=== PATIENT | female | born 1975 | race Caucasian/White ===

== ENCOUNTER 2021-12-05 16:44 | Emergency (ER) | payer OTHER ==
--- OUTSIDE RECORDS SUMMARY | 2021-12-05 16:48 | XMS REPORT | Continuity of Care Document ---
:1975 Author Organization [facility] t Address [address] [place] [address] Care Team Providers Name Role Phone Anurag Fuentes Attending Clinician Unavailable Problems This patient has no known problems. Allergies, Adverse Reactions, Alerts This patient has no known allergies or adverse reactions. Medications Ordered Filled Start Stop Current Ordering Indication Dosage Frequency Signature Comments Components Source Medication Medication Date Date Medication? Clinician (SIG) Name Name Symbicort Symbicort 2018-10 2020- No Na Fuentes [address] [facility] 12 [facility] Levothyroxi Levothyroxi 2018-10 Yes Na Fuentes [address] [facility] ne Sodium ne Sodium 0-23 in the [facility] - 00:00: morning on [facility] 00 an empty l [facility] Ambien Ambien Yes Na Fuentes [address] [facility] bedtime [facility] - as needed [facility] ProAir ProAir Yes Na Fuentes [address] [facility] RespiClick RespiClick needed [facility] - [facility] Singulair Singulair Yes Na Fuentes [address] [facility] - evening [facility] Levothyroxi Levothyroxi Yes Na Fuentes [address] [facility] ne Sodium ne Sodium on an [facility] s - empty [facility] stomach in [facility] Immunizations Ordered Filled Immunization Date Status Comments Sourc e Immunization Name Name Afluria single dose Afluria single dose 2019-08-[address] [facility] Procedures This patient has no known procedures. Encounters Start End Encounter Admission Attending Care Care Encounter Source Date/Time Date/Time Type Type Clinicians Facility Department ID 2021-11-16 Outpatient Alexus Fuentes [facility] [id number] [facility] 2021-11-16 Outpatient Alexus Fuentes [facility] [id number] [facility]39[facility]03 [facility] 2021-11-16 Outpatient Alexus Fuentes [facility] [id number] [facility] 13[facility]34[facility]21 [facility] 2021-11-16 Outpatient Alexus Fuentes [facility] [id number] [facility]33:37 [facility] 2021-11-16 Outpatient Alexus Fuentes [facility] [id number] [facility] 12:59:52 [id number] [facility] 2021-11-16 Outpatient Alexus Fuentes [facility] [id number] [facility] 12:28:11 [id number] [facility] 2021-11-16 Outpatient Gina, Alexus [facility] [id number] [facility] 12:21:43 [id number] [facility] 2021-11-16 Outpatient Alexus Fuentes [facility] [id number] [facility] 12:02:38 [id number] [facility] 2021-11-16 Outpatient Alexus Fuentes [facility] [id number] [facility] 12:02:09 [id number] [facility] 2021-11-16 Outpatient Alexus Fuentes [facility] [id number] [facility] 12:01:48 [id number] [facility] 2021-11-16 Outpatient Alexus Fuentes [facility] [id number] [facility] 11:34:58 [id number] [facility] 2021-11-16 Outpatient Gina, Alexus [facility] [id number] [facility] 11:20:32 [id number] [facility] 2021-11-16 Outpatient Alexus Fuentes [facility] [id number] [facility] 11:05:58 [id number] [facility] 2021-11-16 Outpatient Alexus Fuentes [facility] [id number] [facility] [address] 11:05:32 [id number] [facility] 2021-11-16 2021-11-16 ambulatory [facility] [id number] [facility] 2021-10-26 2021-10-26 ambulatory [facility] [id number] [facility] 2021-07-12 2021-07-12 Outpatient [facility] [id number] [facility] 2021-06-22 2021-06-22 Outpatient [facility] [id number] [facility] 2021-05-25 2021-05-25 Outpatient [facility] [id number] [facility] 2021-03-11 2021-03-11 Outpatient [facility] [id number] [facility] 2021-02-24 2021-02-24 Outpatient [facility] [id number] [facility] 2020-11-26 2020-11-26 Outpatient [facility] [id number] [facility] 2020-11-05 2020-11-05 Outpatient [facility] [id number] [facility] 2020-11-01 2020-11-01 Outpatient [facility] [id number] [facility] 2020-10-27 2020-10-27 Outpatient [facility] [id number] [facility] 2020-09-23 2020-09-23 Outpatient [facility] [id number] [facility] 2020-09-22 2020-09-22 Outpatient [facility] [id number] [facility] 2020-09-21 2020-09-21 Outpatient [facility] [id number] [facility] 2020-09-01 2020-09-01 Outpatient [facility] [id number] [facility] 2020-08-26 2020-08-26 Outpatient [facility] [id number] [facility] 2020-07-22 2020-07-22 Outpatient [facility] [id number] [facility] 2020-05-25 2020-05-25 [facility] [id number] [facility] 15:00:00 15:00:00 [place] [employer] s - Drive [facility] l Medicine Outpati ent Clinics 2020-02-26 2020-02-26 [facility] [id number] [facility] 15:43:00 15:43:00 t [place] [employer] - Drive [facility] Medicine Outpati ent Clinics 2020-02-26 2020-02-26 [facility] [id number] 15:00:00 15:00:[address] [facility] - [employer] [facility] Medicine l Medicine Outpati ent Clinics 2020-02-16 2020-02-16 [facility] [id number] 09:39:00 09:39:00 [facility] l Medicine Outpati ent Clinics 2020-02-11 2020-02-11 [facility] [id number] 14:50:00 14:50:00 [facility] l Medicine Outpati ent Clinics 2020-02-11 2020-02-11 [facility] [id number] [address] 14[facility]00:00 14:00:00 [facility] Medicine Outpati ent Clinics 2020-02-11 2020-02-11 [facility] [id number] 11:17:00 11:17:00 t Contentful s - [employer] [facility] Medicine Outpati ent Clinics 2019-12-01 2019-12-01 [facility] [id number] 08:22:00 08:22:00 t Content[place] s - [employer] [facility] Medicine l Medicine Outpati ent Clinics 2019-11-27 2019-11-27 [facility] [id number] 08:00:00 08:00:00 t [employer] s - [employer] [facility] Medicine l Medicine Outpati ent Clinics 2019-10-03 2019-10-03 [facility] [id number] 10:20:00 10:20:00 t [place] [employer] - [employer] [facility] Medicine l Medicine Outpati ent Clinics 2019-08-27 2019-08-27 [facility] [id number] 15:50:00 15:50:00 t [place] [employer] - [employer] [facility] Medicine l Medicine Outpati ent Clinics 2019-08-22 2019-08-22 [facility] [id number] 15:00:00 15:00:00 t [place] [employer] - [employer] [facility] Medicine l Medicine Outpati ent Clinics 2019-08-11 2019-08-11 [facility] [id number] [facility] 15:18:00 15:18:00 t [place] [employer] [facility] s - Drive [facility] Medicine Outpati ent Clinics 2019-08-04 2019-08-04 [facility] [id number] 16:31:00 16:31:00 t [place] [employer] [facility] s - Drive [facility] l Medicine Outpati ent Clinics 2019-07-28 2019-07-28 [facility] [id number] [address] 09:55:00 09:55:00 t [place] [employer] Luke s - Drive [facility] l Medicine Outpati ent Clinics 2019-05-01 2019-05-01 [facility] [id number] 15:20:00 15:20:00 t [place] [employer] - Drive [facility] Medicine Outpati ent Clinics 2018-10-29 2018-10-29 [facility] [id number] 13:56:00 13:56:00 t [place] [employer] - Drive [facility] Medicine Outpati ent Clinics 2018-09-26 2018-09-26 [facility] [id number] [facility] 14:45:00 14:45:00 t [place] [employer] - Drive [facility] Medicine Outpati ent Clinics 2018-07-03 2018-07-03 [facility] [id number] 15:15:00 15:15:00 t [place] [employer] - Drive [facility] Medicine Outpati ent Clinics 2018-02-21 2018-02-21 [facility] [id number] 14:37:00 14:37:00 t [place] [employer] - Drive [facility] Medicine Outpati ent Clinics 2018-02-01 2018-02-01 [facility] [id number] [facility] 08:30:00 08:30:00 t [place] [employer] - Drive [facility] Medicine Outpati ent Clinics Results This patient has no known results.
[2021-12-05 17:23] LABS: Urine Blood 1+ (Negative); Urine Glucose Negative (Negative); Urine Protein Negative (Negative); Urine Specific Gravity 1.025 (1.005-1.030)
[2021-12-05 17:31] LABS: Urine Specific Gravity/Preg 1.025 (1.005-1.030)
[2021-12-05 17:32] LABS: Hematocrit 36.8 % (36.0-45.0); Lymphocytes % 34.2 % (15.3-44.8); MPV 7.3 fL (7.6-11.3); RBC Red Blood Cell Count 4.46 M/uL (3.86-4.86)
[2021-12-05 17:43] LABS: Albumin 3.7 g/dL (3.4-5.0); BUN Blood Urea Nitrogen 17 mg/dL (7-18); Bicarbonate 25 mmol/L (21-32); Glucose Level 90 mg/dL (74-106); Lipase 213 U/L (73-393); Potassium 3.8 mmol/L (3.5-5.1); Sodium Level 138 mmol/L (136-145)
[2021-12-05 17:49] LABS: ALT/SGPT 25 U/L (12-78); AST/SGOT 19 U/L (15-37); Alkaline Phosphatase 77 U/L (45-117); Bilirubin Direct < 0.1 mg/dL (0-0.2); Bilirubin Total 0.3 mg/dL (0.2-1.0); Protein, Total 7.5 g/dL (6.4-8.2)
--- NOTE | 2021-12-05 18:38 | RAD REPORT ---
EXAM DESCRIPTION: RAD - Chest Single View - 12/05/2021 6:11 pm CLINICAL HISTORY: CHEST PAIN Chest pain. COMPARISON: CHEST PA AND LAT 2 VIEW dated 12/05/2014; ABDOMEN ACUTE SERIES dated 10/11/2013; ABDOMEN 1 VIEW KUB dated 11/27/2012 FINDINGS: Portable technique limits examination quality. The lungs are grossly clear. The heart is upper limit normal in size. No displaced fractures. IMPRESSION: No acute intrathoracic process suspected.
--- NOTE | 2021-12-05 18:53 | RAD REPORT ---
EXAM DESCRIPTION: CTAbdomen Pelvis W Contrast - 12/05/2021 6:38 pm CLINICAL HISTORY: Abdominal pain. ABD PAIN COMPARISON: No comparisons TECHNIQUE: Biphasic CT imaging of the abdomen and pelvis was performed with 100 ml non-ionic IV cont rast. All CT scans are performed using dose optimization technique as appropriate and may include automated exposure control or mA/KV adjustment according to patient size. FINDINGS: The lung bases are clear. The liver, spleen, pancreas, adrenal glands and kidneys are within normal limits. No bowel obstruction, free air, free fluid or abscess. The appendix is normal. No evidence of signi ficant lymphadenopathy. No suspicious bony findings. IMPRESSION: No acute intra-abdominal or pelvic finding.
[2021-12-05] MEDS ORDERED: KETOROLAC 30 MG/ML INJ ONE (19:08)
--- NOTE | 2021-12-05 19:25 | RAD REPORT ---
EXAM DESCRIPTION: US - Abdomen Exam Limited - 12/05/2021 7:20 pm CLINICAL HISTORY: RUQ pain COMPARISON: No comparisons FINDINGS: The gallbladder demonstrates no gallstones. No pericholecystic fluid or gallbladder wall t hickening. The common bile duct is normal measuring 4 mm. The liver demonstrates no findings of intrahepatic biliary dilatation. IMPRESSION: Unremarkable examination.
--- NOTE | 2021-12-05 19:30 | EDPHYS ---
Physician Documentation [facility] Name: Danya Khanna Age: 46 yrs Sex: Female : 1975 Arrival Date: 12/05/2021 Time: 16:50 Bed 24 Private MD: Alexus Fuentes ED Physician Al Youngblood HPI: 12/05 17:43 This 46 yrs old Female presents to ER via Ambulatory with complaints of Epigastric Pain.pm1 17:43 The patient presents with abdominal pain in the right upper quadrant. Onset: The pm1 symptoms/episode began/occurred 1 week(s) ago. The symptoms radiate to the right flank. Associated signs and symptoms: Pertinent positives: shortness of breath, Pertinent negatives: nausea, vomiting, and diarrhea, chest pain, dysuria, fever. The symptoms are described as sharp. Modifying factors: The symptoms are alleviated by applying pressure with hand to area. the symptoms are aggravated by nothing. Severity of pain: in the emergency department the pain has improved. The patient has not experienced similar symptoms in the past. The patient has been recently seen by a physician: the patient's primary care provider, Dr. Fuentes earlier today, with similar presenting complaints, and was sent to the [facility] Emergency Department for further evaluation. 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 - Social history:: Smoking status: Patient denies any tobacco usage or history of. ROS: 17:44 Constitutional: Negative for fever, chills, and weight loss, Cardiovascular: Negative pm1 for chest pain, palpitations, and edema. 17:44 Back: Negative for injury and pain, : Negative for injury, bleeding, discharge, and swelling, MS/Extremity: Negative for injury and deformity, Skin: Negative for injury, rash, and discoloration, Neuro: Negative for headache, weakness, numbness, tingling, and seizure. 17:44 Respiratory: Positive for shortness of breath, Negative for cough. 17:44 Abdomen/GI: Positive for abdominal pain, Negative for nausea, vomiting, and diarrhea. 17:44 All other systems are negative. Exam: 17:44 Constitutional: This is a well developed, well nourished patient who is awake, alert, pm1 and in no acute distress. Head/Face: Normocephalic, atraumatic. 17:44 Back: No spinal tenderness. No costovertebral tenderness. Full range of motion. Skin: Warm, dry with normal turgor. Normal color with no rashes, no lesions, and no evidence of cellulitis. MS/ Extremity: Pulses equal, no cyanosis. Neurovascular intact. Full, normal range of motion. 17:44 Eyes: Exam is negative for acute changes, Periorbital structures: appear normal, Extraocular movements: no acute changes, Conjunctiva: no acute changes, no injection, Sclera: no acute changes, icterus, is not appreciated. 17:44 ENT: Exam is negative for acute changes, Mouth: no acute changes, Lips: normal, moist, Oral mucosa: normal, pink and intact, moist. 17:44 Cardiovascular: Exam negative for acute changes, Rate: normal, Rhythm: regular, Pulses: no pulse deficits are appreciated, Heart sounds: normal, normal S1and S2. 17:44 Respiratory: Exam negative for acute changes, respiratory distress, shortness of breath, Breath sounds: are clear throughout. 17:44 Abdomen/GI: Inspection: obese Palpation: abdomen is soft and non-tender, in all quadrants. 17:44 Neuro: Exam negative for acute changes, Orientation: is normal, Mentation: is normal, Motor: is normal, moves all fours. Vital Signs: 16:58 BP 132 / 79; Pulse 70; Resp 17; Temp 97.8; Pulse Ox 100% ; Weight 110.68 kg; Height 5 ll1 ft. 4 in. (162.56 cm); Pain 2/10; 17:33 BP 137 / 79; Pulse 70; Resp 18; Pulse Ox 100% ; ss7 18:03 BP 145 / 106; Pulse 63; Resp 20; Pulse Ox 100% on R/A; lr4 19:02 BP 131 / 79; Pulse 66; Resp 18; Temp 98.2; Pulse Ox 100% ; mb7 16:58 Body Mass Index 41.88 (110.68 kg, 162.56 cm) ll1 MDM: 17:05 Patient medically screened. pm1 19:28 Data reviewed: vital signs. Data interpreted: Pulse oximetry: on room air is 100 %. pm1 Interpretation: normal. Counseling: I had a detailed discussion with the patient and/or guardian regarding: the historical points, exam findings, and any diagnostic results supporting the discharge/admit diagnosis, lab results, radiology results, the need for outpatient follow up, to return to the emergency department if symptoms worsen or persist or if there are any questions or concerns that arise at home. 12/05 17:14 Order name: Basic Metabolic Panel pm1 12/05 17:14 Order name: CBC with Diff pm1 12/05 17:14 Order name: Hepatic Function pm1 12/05 17:14 Order name: Lipase; Complete Time: 18:21 pm1 12/05 17:14 Order name: Troponin High Sensitivity; Complete Time: 18:21 pm1 12/05 17:15 Order name: Basic Metabolic Panel; Complete Time: 18:21 EDMS 12/05 17:14 Order name: Chest Single View XRAY; Complete Time: 18:54 pm1 12/05 17:14 Order name: CT Abd/Pelvis - IV Contrast Only; Complete Time: 18:54 pm1 12/05 17:15 Order name: CBC with Automated Diff; Complete Time: 17:43 EDMS 12/05 17:15 Order name: Liver (Hepatic) Function; Complete Time: 18:21 EDMS 12/05 17:23 Order name: Urine Dipstick-Ancillary; Complete Time: 17:32 EDMS 12/05 17:23 Order name: Urine --Ancillary (enter results); Complete Time: 17:32 bd 12/05 18:57 Order name: US Abdomen Limited; Complete Time: 19:28 pm1 12/05 17:14 Order name: IV Saline Lock; Complete Time: 17:28 pm1 12/05 17:14 Order name: Labs collected and sent; Complete Time: 17:28 pm1 12/05 17:14 Order name: EKG; Complete Time: 17:15 pm1 12/05 17:14 Order name: EKG - Nurse/Tech; Complete Time: 18:00 pm1 12/05 17:14 Order name: Urine Dipstick-Ancillary (obtain specimen); Complete Time: 17:28 pm12/05 17:14 Order name: Urine Test (obtain specimen); Complete Time: 17:27 pm1 Administered Medications: 19:08 Drug: Ketorolac 30 mg Route: IVP; Site: right antecubital; lr4 19:48 Drug: Bentyl (dicyclomine) 20 mg Route: PO; ss7 Disposition: 12/06 07:28 Co-signature as Attending Physician, Al Youngblood MD. rn Disposition Summary: 12/05/21 19:29 Discharge Ordered Location: Home pm1 Problem: new pm1 Symptoms: have improved pm1 Condition: Stable pm1 Diagnosis - Abdominal pain, unspecified pm1 Followup: pm1 - With: Emergency Department - When: As needed - Reason: Worsening of condition Followup: pm1 - With: Private Physician - When: 2 - 3 days - Reason: Recheck today's complaints, Continuance of care, Re-evaluation by your physician Discharge Instructions: - Discharge Summary Sheet pm1 - Abdominal Pain, Adult pm1 Forms: - Medication Reconciliation Form pm1 - Thank You Letter pm1 - Antibiotic Education pm1 - Prescription Opioid Use pm1 Prescriptions: - dicyclomine 20 mg Oral Tablet - take 1 tablet by ORAL route every 6 hours As needed; 20 tablet; Refills: 0, pm1 Product Selection Permitted Signatures: Dispatcher [employer] EDMS Al Youngblood MD MD rn Marinas, Patrick, DEVAN ASSEMBLER FINAL pm1 Nelsy Wilcox RN RN ll1 Shagufta Chacon RN RN ss7 Joyce Cheng RN RN lr4 Corrections: (The following items were deleted from the chart) 12/05 18:00 17:15 Abdomen Pelvis W Con+CT.RAD.BRZ ordered. EDMS EDMS
--- NOTE | 2021-12-05 19:30 | ER ---
Nurse's Notes [facility] Name: Danya Khanna Age: 46 yrs Sex: Female : 1975 Arrival Date: 12/05/2021 Time: 16:50 Bed 24 Private MD: Alexus Fuentes Diagnosis: Abdominal pain, unspecified Presentation: 12/05 16:58 Chief complaint: Patient states: RUQ abd pain for 1 week. No N/V/D or fever. Sent in 1 for further eval by Dr. Moreira assistant at surgery. Coronavirus screen: Vaccine status: Patient reports receiving the 2nd dose of the covid vaccine. Client denies travel out of the [place] in the last 14 days. At this time, the client does not indicate any symptoms associated with coronavirus-19. Ebola Screen: Patient denies travel to an Ebola-affected area in the 21 days before illness onset. Initial Sepsis Screen: Does the patient meet any 2 criteria? No. Patient's initial sepsis screen is negative. Does the patient have a suspected source of infection? Yes: Acute abdominal pain. Risk Assessment: Do you want to hurt yourself or someone else? Patient reports no desire to harm self or others. Onset of symptoms was November 28, 2021. 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 - Social history:: Smoking status: Patient denies any tobacco usage or history of. Screenin:33 Abuse screen: Denies threats or abuse. Nutritional screening: No deficits noted. ss7 Tuberculosis screening: No symptoms or risk factors identified. Fall Risk None identified. Assessment: 17:31 General: Appears uncomfortable, obese, well groomed, Behavior is calm, cooperative, ss7 appropriate for age. Pain: Complains of pain in RUQ abdomen Pain radiates to back. Neuro: No deficits noted. Cardiovascular: No deficits noted. Respiratory: No deficits noted. GI: Abdomen is distended, obese, Bowel sounds Abd is soft and non tender. : No deficits noted. EENT: No deficits noted. Derm: No deficits noted. Musculoskeletal: No deficits noted. 20:01 Reassessment: Pt given dc instructions with rx x1 and vu. ambulatory to check out with ss7 all personal belongings. . Vital Signs: 16:58 BP 132 / 79; Pulse 70; Resp 17; Temp 97.8; Pulse Ox 100% ; Weight 110.68 kg; Height 5 ll1 ft. 4 in. (162.56 cm); Pain 2/10; 17:33 BP 137 / 79; Pulse 70; Resp 18; Pulse Ox 100% ; ss7 18:03 BP 145 / 106; Pulse 63; Resp 20; Pulse Ox 100% on R/A; lr4 19:02 BP 131 / 79; Pulse 66; Resp 18; Temp 98.2; Pulse Ox 100% ; mb7 16:58 Body Mass Index 41.88 (110.68 kg, 162.56 cm) ll1 ED Course: 16:50 Patient arrived in ED. as 16:50 Alexus Fuentes MD is Private Physician. as 17:00 Triage completed. ll1 17:00 Arm band placed on Patient placed in an exam room, on a stretcher. ll1 17:01 Buthc Natarajan NP is PHCP. pm1 17:01 Al Youngblood MD is Attending Physician. pm1 17:28 Basic Metabolic Panel Sent. ss7 17:28 CBC with Diff Sent. ss7 17:28 Hepatic Function Sent. ss7 17:33 Patient has correct armband on for positive identification. Placed in gown. Call light ss7 in reach. Side rails up X 1. Side rails up X2. 17:33 No provider procedures requiring assistance completed. Inserted saline lock: 20 gauge ss7 in right antecubital area, using aseptic technique. 17:44 EKG done, by ED staff, reviewed by Al Youngblood MD. lr4 18:11 Chest Single View XRAY In Process Unspecified. EDMS 18:37 CT Abd/Pelvis - IV Contrast Only In Process Unspecified. EDMS 19:08 US Abdomen Limited Sent. lr4 19:20 US Abdomen Limited In Process Unspecified. EDMS 20:01 IV discontinued, intact. ss7 Administered Medications: 19:08 Drug: Ketorolac 30 mg Route: IVP; Site: right antecubital; lr4 19:48 Drug: Bentyl (dicyclomine) 20 mg Route: PO; ss7 Outcome: 18:01 Condition: stable lr4 19:29 Discharge ordered by . pm1 20:00 Discharged to home ambulatory. ss7 20:00 Discharge instructions given to patient, family, Prescriptions given X 1. 20:02 Patient left the ED. ss7 Signatures: Dispatcher [employer] Cathie Moreno Patrick, NP CONSULTING PSYCHIATRIST pm1 Nelsy Wilcox RN RN ll1 Radha Ruvalcaba mb7 Shagufta Chacon RN RN ss7 Joyce Cheng RN RN lr4
[2021-12-05] MEDS ORDERED: DICYCLOMINE HCL 10 MG CAP ONE (19:49)
[2021-12-05] MEDS ORDERED: NA CHLORIDE 0.9% 1,000 ML ONE (20:31)
[2021-12-05 20:44] VITALS: O2SAT 100
[2021-12-05 20:50] VITALS: BP 131/79; TEMP 98.2
--- NOTE | 2021-12-06 10:16 | EKG ---
Test Date: 2021-12-05 Test Time: 17:44:42 Manager Coding: LEELEE MEASUREMENT RESULTS: Intervals: Rate: 63 MA: 172 QRSD: 108 QT: 432 QTc: 442 [place]: P: 39 MA: 172 QRS: 21 T: 23 INTERPRETIVE STATEMENTS: Normal sinus rhythm Incomplete right bundle branch block Borderline ECG No previous ECG available for comparison Electronically Signed On 12-06-21 10:14:35 HOUSEHOLD APPLIANCES SERVICE TECHNICIAN by Korey Hunter
== END 2021-12-05 20:02 | disposition home or self-care (01) ==
LOC: ER 16:44
DX: R10.13 Epigastric pain (principal); E03.9 Hypothyroidism, unspecified
CPT/HCPCS: 93005; 85025; 80048; 36415; 81025; 80076; 81003; 84484; 83690; 74177; 71045; 76705; 96374; 99284; Q9967; J7030

== ENCOUNTER 2024-04-06 16:31 | Emergency (ER) | payer OTHER ==
--- OUTSIDE RECORDS SUMMARY | 2024-04-06 16:38 | XMS REPORT | Continuity of Care Document ---
Author Name Unknown Address [address] [facility] [address] [place] [address] [facility] thconnect Address [address] [facility] [place] [address] Care Team Providers Care Passenger Brakeman Name Role Phone YIN, NICKI Primary Care Physician Unavailab Nicki Mon L Attending Clinician Unavailable KIRSTIE SAUCEDO Attending Clinician Unavailable TEODORO MARTÍNEZ Attending Clinician Unavailable ANNA MARTINEZ Attending Clinician Unavailable LAB90 Attending Clinician Unavailable RADIOLOGY Attending Clinician Unavailable Radiology Attending Clinician Unavailable Doctor Unassigned, Screven Attending Clinician U FLOR Giron Admitting Clinician Unavailabl e Payers Payer Name Policy Type Policy Number Effective Date Expirati on Date Source [facility] 2 [id number] 2022 00:00:00 ENTRUST CLAIMS TEAM 53 [id number] 2021 00:00:00 [facility] CIGNA 2 [id number] 2020 00:00:00 COMMERCIAL-90 DEGREE BENEFIT-THEODORA N 4 [id number] 2022 00:00:00 CIGNA II [id number] 2021 00:00:00 CIGNA 53 [id number] [facility] - [facility] Problems Condition Name Condition Details Condition Category Status Onset Date Resolution Date Last Treatment Date Treating Clinician Comments Source Dermatitis Dermatitis Disease Active 2022-10 00:00: 00 Jacque Wolfe - Externa l History of MRSA infection History of MRSA infection Disease Active 2022-10 00:00: 00 Jacque Rosaold - Externa l Cellulitis of left lower extremity Cellulitis of left lower extremity Disease Active 2022-10 00:00: 00 Jacque Rosaold - Externa l Asthma ([facility]) Asthma ([facility]) Disease Active 2022-10 00:00: 00 Jacque Rosaold - Externa l Mixed hyperlipid emia Mixed hyperlipid emia Disease Active 03-28 00:00: 00 Jacque Rosaold - Externa l Well adult exam Well adult exam Disease Active 02-21 00:00: 00 Jacque Rosaold - Externa l Class 2 obesity due to excess calories without serious comorbidit y with body mass index (BMI) of 38.0 to 38.9 in adult Class 2 obesity due to excess calories without serious comorbidit y with body mass index (BMI) of 38.0 to 38.9 in adult Disease Active 2021-10 00:00: 00 Jacque Rosaold - Externa l Class 3 severe obesity due to excess calories with body mass index (BMI) of 45.0 to 49.9 in adult Class 3 severe obesity due to excess calories with body mass index (BMI) of 45.0 to 49.9 in adult Disease Active 2021-10 00:00: 00 Jacque Seybold - Externa l Hypothyroi dism (acquired) Hypothyroi dism (acquired) Disease Active 2021-10 00:00: 00 Jacque Seybold - Externa l Hypothyroi dism Hypothyroi dism Problem Active 03-13 00:00: 00 [facility] Vaginitis and vulvovagin itis Vaginitis and Vulvovagin itis Problem Active [facility] Allergic rhinitis Allergic rhinitis Problem [facility] Obesity Obesity Problem [facility] [id number] Pure hyperchole sterolemia Problem [facility] [id number] Nausea Problem [facility] [id number] NEREIDA (obstructi ve sleep apnea) Problem [facility] [id number] Primary insomnia Problem [facility] Urinary incontinen ce Urinary incontinen ce Problem [facility] [id number] Constipati on, unspecifie d constipati on type Problem [facility] Vitamin D deficiency Vitamin D deficiency Problem [facility] [id number] BMI 36.0-36.9, adult Problem [facility] [id number] Chronic fatigue Problem [facility] Allergies, Adverse Reactions, Alerts Allergy Name Allergy Type Status Severity Reaction(s) Onset Date Inactive Date Treating Clinician Comments Source NO KNOWN ALLERGIE S Drug Class Active [facility] Social History Social Habit Start Date Stop Date Quantity Comments Source Gender identity Teri Wolfe - External Sexual orientation Shari Wolfe - External History of Tobacco Use [facility] Alcohol intake 2023-11-03 00:00:00 2023-11-03 00:00:00 Ex-drinker (finding) Jacque Wolfe - External History of Social function 2023-03-28 00:00:00 2023-03-28 00:00:00 Jacque Wolfe - External Tobacco use and exposure 2022-08-22 00:00:00 2022-08-22 00:00:00 Smokeless tobacco non-user Jacque Wolfe - External Sex Assigned At 1975 00:00:00 1975 00:00:00 Jacque Wolfe - External Smoking Status Start Date Stop Date Source Tobacco smoking consumption unknown [facility] Never smoked tobacco Jacque Wolfe - External Medications Ordered Medication Name Filled Medication Name Start Date Stop Date Current Medication? Ordering Clinician Indication Dosage Frequency Signature (SIG) Comments Components Source TRIMETHOPRI M-POLYMYXIN B 06610-1.1 UNIT/ML-% ophthalmic Solution 11-03 00:00: 00 Yes [id number] 1[drp] Apply 1 drop to eye every 4 (four) hours. Jacque bergman Cephalexin 500 MG oral Capsule 2022-10 11:20: 31 10-05 00:00 :00 No 500mg Take 1 capsule (500 mg total) by mouth 4 times daily. Jacque bergman Tramadol HCl (ULTRAM) 50 MG oral Tablet 2022-10 11:15: 38 10-05 00:00 :00 No 50mg Q.25D Take 1 tablet (50 mg total) by mouth every 6 hours as needed for pain. Jacque bergman Sulfamethox azole-Trime thoprim (SULFAMETHO XAZOLE-TMP DS OR) 2022-10 11:15: 32 10-05 00:00 :00 No Take by mouth. Jacque bergman Ketorolac Tromethamin e 10 MG oral Tablet 2022-10 11:15: 29 10-05 00:00 :00 No 10mg Q.25D Take 1 tablet (10 mg total) by mouth every 6 hours as needed for pain. Jacque bergman Mupirocin (BACTROBAN) 2 % apply externally Ointment 2022-10 11:09: 22 Yes Apply 1 applicatio n. topically 3 times daily. Jacque bergman Ketorolac Tromethamin e 10 MG oral Tablet 2022-10 16:07: 40 Yes 10mg Q.25D Take 1 tablet (10 mg total) by mouth every 6 hours as needed for pain. Jacque bergman Sulfamethox azole-Trime thoprim (SULFAMETHO XAZOLE-TMP DS OR) 2022-10 16:07: 40 Yes Take by mouth. Jacque bergman Cephalexin 500 MG oral Capsule 2022-10 16:07: 40 Yes 500mg Take 1 capsule (500 mg total) by mouth 4 times daily. Jacque bergman Mupirocin (BACTROBAN) 2 % apply externally Ointment 2022-10 16:07: 40 Yes Apply 1 applicatio n. topically 3 times daily. Jacque bergman Tramadol HCl (ULTRAM) 50 MG oral Tablet 2022-10 16:07: 40 Yes 50mg Q.25D Take 1 tablet (50 mg total) by mouth every 6 hours as needed for pain. Jacque bergman Albuterol HFA 108 (90 Base) MCG/ACT IN AERS 2022-10 00:00: 00 Yes [id number] 2{puff} Q.25D Inhale 2 puffs into the lungs every 6 hours as needed for wheezing or shortness of breath. Jacque bergman Amoxicillin -Pot Clavulanate 875-125 MG oral Tablet 07-18 00:00: 00 Yes [id number] 1{tbl} Take 1 tablet by mouth 2 times daily. Jacque bergman Levothyroxi ne Sodium 137 MCG oral Tablet 03-28 11:36: 35 03-28 00:00 :00 No 137ug Take 1 tablet (137 mcg total) by mouth every 24 hours Jacque bergman Montelukast (SINGULAIR) 10 MG oral Tablet tablet 03-28 11:36: 35 03-28 00:00 :00 No 10mg Take 1 tablet (10 mg total) by mouth nightly Jacque bergman Levothyroxi ne Sodium 137 MCG oral Tablet 03-28 00:00: 00 Yes [id number] 137ug Take 1 tablet (137 mcg total) by mouth every 24 hours Jacque bergman Montelukast (SINGULAIR) 10 MG oral Tablet tablet 03-28 00:00: 00 10-05 00:00 :00 No [id number] 10mg Take 1 tablet (10 mg total) by mouth nightly Jacque bergman Levothyroxi ne Sodium 137 MCG oral Tablet 02-21 09:13: 00 Yes 137ug Take 1 tablet (137 mcg total) by mouth every 24 hours Jacque bergman Amoxicillin -Pot Clavulanate 875-125 MG oral Tablet 10-25 00:00: 00 Yes [id number] 1{tbl} Take 1 tablet by mouth 2 times daily Jacque bergman Benzonatate (Tessalon Perles) 100 MG oral Capsule 10-25 00:00: 00 Yes [id number] 100mg Q.[id number] 3D Take 1 capsule (100 mg total) by mouth 3 times daily as needed for cough Jacque bergman Albuterol HFA 108 (90 Base) MCG/ACT IN AERS 10-25 00:00: 00 Yes [id number] 2{puff} Q.25D Inhale 2 puffs into the lungs every 6 hours as needed for wheezing or shortness of breath Jacque bergman predniSONE (DELTASONE) 10 MG oral tablet 10-25 00:00: 00 Yes [id number] 10mg Take 1 tablet (10 mg total) by mouth daily Jacque bergman Levothyroxi ne Sodium 137 MCG oral Tablet 2021-10 16:43: 03 Yes 1{tbl} Take 1 tablet by mouth every 24 hours Jacque bergman Ramelteon 8 MG oral Tablet 2021-10 00:00: 00 02-21 00:00 :00 No [id number] 8mg Take 1 tablet (8 mg total) by mouth nightly Jacque bergman Albuterol Sulfate HFA 108 (90 Base) MCG/ACT Albuterol Sulfate HFA 108 (90 Base) MCG/ACT 2021-10 00:00: 00 No 2{puffs } Albuterol Sulfate HFA 108 (90 Base) MCG/ACT Albuterol Sulfate HFA 108 (90 Base) MCG/ACT Albuterol Sulfate HFA 108 (90 Base) MCG/ACT 2021-10 0 00:00: 00 No 2{puffs } Albuterol Sulfate HFA 108 (90 Base) MCG/ACT Albuterol Sulfate HFA 108 (90 Base) MCG/ACT Albuterol Sulfate HFA 108 (90 Base) MCG/ACT 2021-1 0-26 00:00: 00 No 2{puffs } Albuterol Sulfate HFA 108 (90 Base) MCG/ACT Ambien 10 Ambien 10 2021-10 0-25 00:00: 00 No QD Ambien 10 Zolpidem Tartrate 10 MG oral Tablet 1 0-25 00:00: 00 08-22 00:00 :00 No 1{tbl} Take 1 tablet by mouth every 24 hours Jacque bergman Zolpidem Tartrate 10 MG Zolpidem Tartrate 10 MG 2-0 8-10 00:00: 00 No Zolpidem Tartrate 10 MG Zolpidem Tartrate 10 MG Zolpidem Tartrate 10 MG 2-0 8-10 00:00: 00 No Zolpidem Tartrate 10 MG Zolpidem Tartrate 10 MG Zolpidem Tartrate 10 MG 2-0 8-10 00:00: 00 No Zolpidem Tartrate 10 MG Zolpidem Tartrate 10 MG Zolpidem Tartrate 10 MG 2-0 8-10 00:00: 00 No Zolpidem Tartrate 10 MG Zolpidem Tartrate 10 MG Zolpidem Tartrate 10 MG 2-0 6-09 00:00: 00 No Zolpidem Tartrate 10 MG Ambien 10 Ambien 10 0 1-26 00:00: 00 No Ambien 10 Zolpidem Tartrate 10 MG Zolpidem Tartrate 10 MG 2-0 1-05 00:00: 00 No QD Zolpidem Tartrate 10 MG Zolpidem Tartrate 10 MG Zolpidem Tartrate 10 MG 2-0 1-05 00:00: 00 No 1{table t_at_be dtime_a s_neede d} QD Zolpidem Tartrate 10 MG Zolpidem Tartrate 10 MG Zolpidem Tartrate 10 MG 1-0 9-21 00:00: 00 No Zolpidem Tartrate 10 MG Rosuvastati n Calcium 5 MG Rosuvastati n Calcium 5 MG 1-0 9- 00:00: 00 No 1{table t} QD Rosuvastat in Calcium 5 MG Fish Oil 1000 MG Fish Oil 1000 MG 2020-0 9- 00:00: 00 No 1{capsu le} BID Fish Oil 1000 MG Fish Oil 1000 MG Fish Oil 1000 MG 2020-0 - 00:00: 00 No 1{capsu le} BID Fish Oil 1000 MG Fish Oil 1000 MG Fish Oil 1000 MG 202-0 - 00:00: 00 No 1{capsu le} BID Fish Oil 1000 MG Fish Oil 1000 MG Fish Oil 1000 MG 2020-0 06-22 00:00: 00 No 1{capsu le} BID Fish Oil 1000 MG Fish Oil 1000 MG Fish Oil 1000 MG 2020-0 06-22 00:00: 00 No 1{capsu le} BID Fish Oil 1000 MG Fish Oil 1000 MG Fish Oil 1000 MG 2020-0 06-22 00:00: 00 07-22 00:00 :00 No 1{capsu le} QD Fish Oil 1000 MG Levothyroxi ne Sodium 137 MCG Levothyroxi ne Sodium 137 MCG 2020-0 03-12 00:00: 00 No QD Levothyrox ine Sodium 137 MCG Levothyroxi ne Sodium 137 MCG Levothyroxi ne Sodium 137 MCG 2020-0 03-12 00:00: 00 No QD Levothyrox ine Sodium 137 MCG Symbicort Symbicort 2018-10 2-13 00:00: 00 09-27 00:00 :00 No Na Esqueda 2 puffs [facility] Levothyroxi ne Sodium Levothyroxi ne Sodium 2018-10 0 00:00: 00 Yes Na Esqueda 1 tablet in the morning on an empty stomach [facility] Levothyroxi ne Sodium 125 MCG Levothyroxi ne Sodium 125 MCG 2018-10 023 00:00: 00 No QD Levothyrox ine Sodium 125 MCG Fish Oil Fish Oil No Fish Oil [facility] flaxseed flaxseed No flaxseed [facility] ibuprofen ibuprofen No ibuprofen [facility] levothyroxi ne 112 mcg tablet levothyroxi ne 112 mcg tablet No levothyrox ine 112 mcg tablet [facility] magnesium magnesium No magnesium [facility] Vitamin B6 Vitamin B6 No Vitamin B6 [facility] Vitamin D Vitamin D No Vitamin D [facility] Ambien Ambien Yes Na Esqueda 1 tablet at bedtime as needed [facility] ProAir RespiClick ProAir RespiClick Yes Na Esqueda 2 puffs as needed [facility] Singulair Singulair Yes Na Esqueda 1 ta blet in the evening [facility] Levothyroxi ne Sodium Levothyroxi ne Sodium Yes Na Esqueda 1 tablet on an empty stomach in the morning [facility] Singulair 10 MG Singulair 10 MG No 1{table t_in_th e_eveni ng} QD Singulair 10 MG ProAir RespiClick 108 (90 Base) MCG/ACT ProAir RespiClick 108 (90 Base) MCG/ACT No 2{puffs _as_nee ded} QID ProAir RespiClick 108 (90 Base) MCG/ACT ProAir RespiClick 108 (90 Base) MCG/ACT ProAir RespiClick 108 (90 Base) MCG/ACT No 2{puffs _as_nee ded} QID ProAir RespiClick 108 (90 Base) MCG/ACT Fiber Fiber No Fiber Singulair 10 MG Singulair 10 MG No 1{table t_in_th e_eveni ng} QD Singulair 10 MG ProAir RespiClick 108 (90 Base) MCG/ACT ProAir RespiClick 108 (90 Base) MCG/ACT No 2{puffs _as_nee ded} QID ProAir RespiClick 108 (90 Base) MCG/ACT Singulair 10 MG Singulair 10 MG No 1{table t_in_th e_eveni ng} QD Singulair 10 MG Fiber Fiber No Fiber Singulair 10 MG Singulair 10 MG No 1{table t_in_th e_eveni ng} QD Singulair 10 MG Fiber Fiber No Fiber Singulair 10 MG Singulair 10 MG No 1{table t_in_th e_eveni ng} QD Singulair 10 MG Fiber Fiber No Fiber Singulair 10 MG Singulair 10 MG No 1{table t_in_th e_eveni ng} QD Singulair 10 MG Immunizations Ordered Immunization Name Filled Immunization Name Date Status Comments Source Tdap- (Boostrix, Adacel) 2023-02-21 00:00:00 Abner Wolfe External Tdap- (Boostrix, Adacel) 2023-02-21 00:00:00 Completed Jacque Starkey External Flucelvax - single dose syringe Flucelvax - single dose syringe 2022-08-15 16:51:00 Completed [facility] Flucelvax - single dose syringe Flucelvax - single dose syringe 2022-08-15 16:51:00 Completed [facility] Flucelvax - single dose syringe Flucelvax - single dose syringe 2022-08-15 16:51:00 Completed [facility] Flucelvax - single dose syringe Flucelvax - single dose syringe 2022-08-15 16:51:00 Completed [facility] Influenza, Injectable, Mdck, Preservative Free, Quadrivalt 2022-08-15 00:00:00 Completed Jacque Starkey External Influenza, Injectable, Mdck, Preservative Free, Quadrivalt 2022-08-15 00:00:00 Completed Jacque Starkey External Influenza, Injectable, Mdck, Preservative Free, Quadrivalt 2022-08-15 00:00:00 Completed Jacque Starkey External Influenza, Injectable, Mdck, Preservative Free, Quadrivalt 2022-08-15 00:00:00 Completed Jacque Starkey External Afluria single dose Afluria single dose 16:54:00 Completed [facility] Afluria single dose Afluria single dose 16:54:00 Completed [facility] Afluria single dose Afluria single dose 16:54:00 Completed [facility] Afluria single dose Afluria single dose 16:54:00 Completed [facility] Afluria single dose Afluria single dose 16:54:00 Completed [facility] Afluria single dose Afluria single dose 16:54:00 Completed [facility] Afluria single dose Afluria single dose 16:54:00 Completed [facility] Afluria single dose Afluria single dose 16:54:00 Completed [facility] Afluria single dose Afluria single dose 16:54:00 Completed [facility] Afluria single dose Afluria single dose 16:54:00 Completed [facility] Afluria single dose Afluria single dose 16:54:00 Completed [facility] Afluria single dose Afluria single dose 16:54:00 Completed [facility] Afluria single dose Afluria single dose 16:54:00 Completed [facility] Afluria single dose Afluria single dose 16:54:00 Completed [facility] Afluria single dose Afluria single dose 16:54:00 Completed [facility] Influenza Virus Vaccine, No Preserv, age 6 months and up 2019-08-22 00:00:00 Completed Jacque Seybold - External Influenza Virus Vaccine, No Preserv, age 6 months and up 2019-08-22 00:00:00 Completed Jacque Seybold - External Influenza Virus Vaccine, No Preserv, age 6 months and up 2019-08-22 00:00:00 Completed Jacque Seybold - External Influenza Virus Vaccine, No Preserv, age 6 months and up 2019-08-22 00:00:00 Completed Jacque Seybold - External Afluria single dose Afluria single dose 00:00:00 Completed [facility] Influenza Virus Vaccine, No Preserv, age 6 months and up Unknown Completed Jacque Seybold - External Influenza, Injectable, Mdck, Preservative Free, Quadrivalent Unknown Completed Jacque Seybold - External Tdap- (Boostrix, Adacel) Unknown Completed Jacque Seybold - External Influenza Virus Vaccine, No Preserv, age 6 months and up Unknown Completed Jacque Seybold - External Influenza, Injectable, Mdck, Preservative Free, Quadrivalent Unknown Completed Jacque Seybold - External Tdap- (Boostrix, Adacel) Unknown Completed Jacque Brandonybold - External Influenza Virus Vaccine, No Preserv, age 6 months and up Unknown Completed Jacque Rosaold - External Influenza, Injectable, Mdck, Preservative Free, Quadrivalent Unknown Completed Jacque Seybold - External Tdap- (Boostrix, Adacel) Unknown Completed Jacque Rosaold - External Influenza Virus Vaccine, No Preserv, age 6 months and up Unknown Completed Jacque Brandonybold - External Influenza, Injectable, Mdck, Preservative Free, Quadrivalent Unknown Completed Jacque Brandonybold - External Tdap- (Boostrix, Adacel) Unknown Completed Jacque Rosaold - External Tdap - ML Tdap - ML Unknown Completed [facility] Vital Signs Vital Name Observation Time Observation Value Comments S ource Systolic blood pressure 2023-10-05 17:11:00 124 mm[Hg] Jacque Seybo ld - External Diastolic blood pressure 2023-10-05 17:11:00 68 mm[Hg] Jacque Seybo ld - External Heart rate 2023-10-05 17:11:00 77 /min Kelse y Seybold - External Body temperature 2023-10-05 17:11:00 37 Ivory Jacque Seybold - External Body height 2023-10-05 17:11:00 162.6 cm Teri ey Seybold - External Body weight 2023-10-05 17:11:00 105.416 kg Teri ey Seybold - External BMI 2023-10-05 17:11:00 39.89 kg/m2 Teri ey Seybold - External Oxygen saturation in Arterial blood by Pulse oximetry 2023-10-05 17:11:00 98 /min Jacque Seybo ld - External Systolic blood pressure 2023-08-10 21:09:00 130 mm[Hg] Jacque Seybo ld - External Diastolic blood pressure 2023-08-10 21:09:00 78 mm[Hg] Jacque Seybo ld - External Heart rate 2023-08-10 21:09:00 75 /min Kelse y Seybold - External Body temperature 2023-08-10 21:09:00 37.44 Ivory Jacque Seybold - External Respiratory rate 2023-08-10 21:09:00 18 /min Jacque Seybold - External Body height 2023-08-10 21:09:00 162.6 cm Teri ey Seybold - External Body weight 2023-08-10 21:09:00 102.785 kg Teri ey Seybold - External BMI 2023-08-10 21:09:00 38.90 kg/m2 Teri ey Seybold - External Oxygen saturation in Arterial blood by Pulse oximetry 2023-08-10 21:09:00 97 /min Jacque Seybo ld - External Systolic blood pressure 2023-03-28 16:05:00 121 mm[Hg] Jacque Seybo ld - External Diastolic blood pressure 2023-03-28 16:05:00 79 mm[Hg] Jacque Seybo ld - External Heart rate 2023-03-28 16:05:00 69 /min Kelse y Seybold - External Body temperature 2023-03-28 16:05:00 36.61 Ivory Jacque Seybold - External Respiratory rate 2023-03-28 16:05:00 19 /min Jacque Seybold - External Body height 2023-03-28 16:05:00 162.6 cm Teri ey Seybold - External Body weight 2023-03-28 16:05:00 102.513 kg Teri ey Seybold - External BMI 2023-03-28 16:05:00 38.79 kg/m2 Teri ey Seybold - External Oxygen saturation in Arterial blood by Pulse oximetry 2023-03-28 16:05:00 99 /min Jacque Seybo ld - External Systolic blood pressure 2023-02-21 14:03:00 131 mm[Hg] Jacque Seybo ld - External Diastolic blood pressure 2023-02-21 14:03:00 83 mm[Hg] Jacque Seybo ld - External Heart rate 2023-02-21 14:03:00 87 /min Kelse y Seybold - External Body temperature 2023-02-21 14:03:00 37 Ivory Jacque Seybold - External Respiratory rate 2023-02-21 14:03:00 19 /min Jacque Seybold - External Body height 2023-02-21 14:03:00 162.6 cm Teri ey Seybold - External Body weight 2023-02-21 14:03:00 121.564 kg Teri ey Seybold - External BMI 2023-02-21 14:03:00 46.00 kg/m2 Teri ey Seybold - External Oxygen saturation in Arterial blood by Pulse oximetry 2023-02-21 14:03:00 97 /min Jacque Rosao ld - External Systolic blood pressure 2022-08-22 21:38:00 115 mm[Hg] Jacque Brandonybo ld - External Diastolic blood pressure 2022-08-22 21:38:00 67 mm[Hg] Jacque Brandonybo ld - External Heart rate 2022-08-22 21:38:00 78 /min Meek y Seybold - External Respiratory rate 2022-08-22 21:38:00 14 /min Jacque Brandonybold - External Body height 2022-08-22 21:38:00 162.6 cm Teri ey Seybold - External Body weight 2022-08-22 21:38:00 104.781 kg Teri james Seybold - External BMI 2022-08-22 21:38:00 39.65 kg/m2 Teri ey Seybold - External Oxygen saturation in Arterial blood by Pulse oximetry 2022-08-22 21:38:00 99 /min Jacque Rosao ld - External height 2022-08-15 13:40:00 64.00 [in_i] Com [facility] weight 2022-08-15 13:40:00 226.2 [lb_av] Co [facility] temperature 2022-08-15 13:40:00 98.1 [degF] Com mon [facility] bmi 2022-08-15 13:40:00 38.82 kg/m2 Comm [facility] oximetry 2022-08-15 13:40:00 96 % Commo [facility] respiratory rate 2022-08-15 13:40:00 15 /min Common [facility] blood pressure systolic 2022-08-15 13:40:00 127 mm[Hg] Common [facility] blood pressure diastolic 2022-08-15 13:40:00 72 mm[Hg] Common [facility] height 2022-04-19 09:40:00 64.00 [in_i] Com [facility] weight 2022-04-19 09:40:00 226 [lb_av] Comm on [facility] temperature 2022-04-19 09:40:00 97.6 [degF] Com [facility] bmi 2022-04-19 09:40:00 38.79 kg/m2 Comm [facility] height 2021-12-05 14:40:00 64.00 [in_i] Com [facility] weight 2021-12-05 14:40:00 244 [lb_av] Comm on [facility] temperature 2021-12-05 14:40:00 97 [degF] Comm on [facility] bmi 2021-12-05 14:40:00 41.88 kg/m2 Comm on [facility] oximetry 2021-12-05 14:40:00 96 % Commo n [facility] respiratory rate 2021-12-05 14:40:00 16 /min [facility] blood pressure systolic 2021-12-05 14:40:00 125 mm[Hg] [facility] blood pressure diastolic 2021-12-05 14:40:00 79 mm[Hg] [facility] height 2021-11-16 11:20:00 64.00 [in_i] Com [facility] weight 2021-11-16 11:20:00 241 [lb_av] Comm on [facility] temperature 2021-11-16 11:20:00 98.2 [degF] Com [facility] bmi 2021-11-16 11:20:00 41.36 kg/m2 Comm [facility] height 2021-05-25 11:40:00 64.00 [in_i] Com [facility] weight 2021-05-25 11:40:00 230.0 [lb_av] Co [facility] bmi 2021-05-25 11:40:00 39.48 kg/m2 Comm [facility] Procedures Procedure Date / Time Performed Performing Clinician Source SCREENING MAMMOGRAPHY BI 2-VIEW BREAST INC CAD 2024-04-02 00:00:00 [facility] US PELVIC NONOBSTETRIC REAL-TIME IMAGE COMPLETE 2024-04-02 00:00:00 [facility] ASSIGNMENT OF BENEFITS 2022-06-21 13:58:38 Docto r Unassigned, [place] [facility] Tubal Ligation [facility] Ca[facility] Encounters Start Date/Time End Date/Time Encounter Type Admission Type Attending Clinicians Care Facility Care Department Encounter ID Source 2023-11-26 10:53:00 Outpatient ESQUEDA, Na [facility] [id number] [facility] 2022-08-15 13:45:01 Outpatient Esqueda, Na [facility]LMLC [facility] [id number] [facility] 2022-05-29 15:13:00 Outpatient Esqueda, Na STLMLC ST[facility] [id number] [facility] 2021-11-16 14:39:55 Outpatient Esqueda, Na STLMLC STL[facility]C [id number] [facility] 2021-11-16 14:39:03 Outpatient Esqueda, Na STLMLC STLMLC [id number] [facility] 2021-11-16 13:34:21 Outpatient Esqueda, Na STLMLC STLMLC [id number] [facility] 2021-11-16 13:33:37 Outpatient Esqueda, Na STLMLC STLMLC [id number] [facility] 2021-11-16 12:59:52 Outpatient Esqueda, Na STLMLC STLMLC [id number] [facility] 2021-11-16 12:28:11 Outpatient Nicki Esqueda STCANDELC STLMLC [id number] [facility] 2021-11-16 12:21:43 Outpatient Nicki Esqueda STTANIKA STLMLC [id number] [facility] 2021-11-16 12:02:38 Outpatient Nicki Esqueda STTANIKA STLMLC [id number] [facility] 2021-11-16 12:02:09 Outpatient Nicki Esqueda STCANDELC STLMLC [id number] [facility] 2021-11-16 12:01:48 Outpatient Nicki Esqueda STTANIKA STLMLC [id number] [facility] 2021-11-16 11:34:58 Outpatient Nicki Esqueda STTANIKA STLMLC [id number] [facility] 2021-11-16 11:20:32 Outpatient Nicki Esqueda STTANIKA STLMLC [id number] [facility] 2021-11-16 11:05:58 Outpatient Nicki Esqueda STTANIKA STLMLC [id number] [facility] 2021-11-16 11:05:32 Outpatient Nicki Esqueda STTANIKA STLMLC [id number] [facility] 2024-04-23 15:45:00 2024-04-23 15:45:00 Outpatient KIRSTIE SAUCEDO [id number] Jacque Wolfe 2024-04-02 00:00:00 2024-04-02 00:00:00 Hardy [place]el MD: [place] [address] , Ph. [facility] [id number] [facility] 2024-03-07 00:00:00 2024-03-07 00:00:00 Outpatient KIRSTIE SAUCEDO [id number] [facility] 2024-03-05 16:00:00 2024-03-05 16:00:00 Outpatient PREZAS, KIRSTIE SOLORZANORICHARD RAMSEY [id number] [facility] 2023-11-03 06:05:00 2023-11-03 06:05:00 Outpatient TEODORO MARTÍNEZ JACQUE RAMSEY [id number] [facility] 2023-10-05 11:15:00 2023-10-05 11:15:00 Outpatient PREZAS, KIRSTIE JACQUE RAMSEY [id number] [facility] 2023-09-26 13:30:00 2023-09-26 13:30:00 Outpatient PREZAS, KIRSTIE JACQUE RAMSEY [id number] [facility] 2023-08-10 16:15:00 2023-08-10 16:15:00 Outpatient PREZAS, KIRSTIE JACQUE RAMSEY [id number] [facility] 2023-07-18 13:15:00 2023-07-18 13:15:00 Outpatient ANNA MARTINEZ JACQUE RAMSEY [id number] [facility] 2023-07-17 00:00:00 2023-07-17 00:00:00 Outpatient PREZAS, KIRSTIE JACQUE RAMSEY [id number] [facility] 2023-04-23 00:00:00 2023-04-23 00:00:00 Outpatient PREZAS, KIRSTIE RAMSEY [id number] [facility] 2023-03-28 10:45:00 2023-03-28 10:45:00 Outpatient PREZAS, KIRSTIE JACQUE RAMSEY [id number] [facility] 2023-03-23 00:00:00 2023-03-23 00:00:00 Outpatient PREZAS, KIRSTIE RAMSEY [id number] [facility] 2023-02-21 09:45:00 2023-02-21 09:45:00 Outpatient LABWendie RAMSEY [id number] [facility] 2023-02-21 09:00:00 2023-02-21 09:00:00 Outpatient PREZAS, KIRSTIE JACQUE RAMSEY [id number] [facility] 2022-10-25 14:45:00 2022-10-25 14:45:00 Outpatient KIRSTIE SAUCEDO JACQUE [id number] [facility] 2022-09-28 00:00:00 2022-09-28 00:00:00 (TEL) STLMLC STLMLC [id number] [facility] 2022-08-22 16:00:00 2022-08-22 16:00:00 Outpatient KIRSTIE SAUCEDO [id number] [facility] 2022-08-15 00:00:00 2022-08-15 00:00:00 (TEL) STLMLC STLMLC [id number] [facility] 2022-08-15 00:00:00 2022-08-15 00:00:00 OFFICE VISIT ESTAB PT LEVEL 4 STLMLC STLMLC [id number] [facility] 2022-08-14 00:00:00 2022-08-14 00:00:00 (TEL) STLMLC STLMLC [id number] [facility] 2022-06-21 09:00:36 2022-06-21 23:59:00 Outpatient R RADIOLOGY [facility] [id number] [facility] 2022-06-21 09:00:00 2022-06-21 23:59:00 Hospital Encounter Radiology [facility] [id number] [facility] 2022-06-21 00:00:00 2022-06-21 00:00:00 Orders Only Doctor Unassigned, [place] [facility] 1..[id number] [facility] 2022-04-28 00:00:00 2022-04-28 00:00:00 (TEL) STLMLC STLMLC [id number] [facility] 2022-04-19 00:00:00 2022-04-19 00:00:00 OFFICE VISIT ESTAB PT LEVEL 4 STLMLC STLMLC [id number] [facility] 2022-03-30 00:00:00 2022-03-30 00:00:00 (TEL) STLMLC STLMLC [id number] [facility] 2021-12-23 00:00:00 2021-12-23 00:00:00 (TEL) STLMLC STLMLC [id number] [facility] 2021-12-05 00:00:00 2021-12-05 00:00:00 (TEL) STLMLC STLMLC [id number] [facility] 2021-12-05 00:00:00 2021-12-05 00:00:00 OFFICE VISIT EST PT LEVEL 3 STLMLC STLMLC [id number] [facility] 2021-11-16 00:00:00 2021-11-16 00:00:00 OFFICE VISIT ESTAB PT LEVEL 4 STLMLC STLMLC [id number] [facility] 2021-10-26 00:00:00 2021-10-26 00:00:00 (TEL) STLMLC STLMLC [id number] [facility] 2021-07-12 00:00:00 2021-07-12 00:00:00 (TEL) STLMLC STLMLC [id number] [facility] 2021-06-22 00:00:00 2021-06-22 00:00:00 (TEL) STLMLC STLMLC [id number] [facility] 2021-05-25 00:00:00 2021-05-25 00:00:00 OFFICE VISIT EST PT LEVEL 3 STLMLC STLMLC [id number] [facility] 2021-03-11 00:00:00 2021-03-11 00:00:00 Outpatient STLMLC STLMLC [id number] [facility] 2021-02-24 00:00:2021-02-24 00:00:00 Outpatient STLMLC STLMLC [id number] [facility] 2020-11-26 00:00:00 2020-11-26 00:00:00 Outpatient STLMLC STLMLC [id number] [facility] 2020-11-05 00:00:00 2020-11-05 00:00:00 Outpatient STLMLC STLMLC [id number] [facility] 2020-11-01 00:00:00 2020-11-01 00:00:00 Outpatient STLMLC STLMLC [id number] [facility] 2020-10-27 00:00:00 2020-10-27 00:00:00 Outpatient STLMLC STLMLC [id number] [facility] 2020-09-23 00:00:00 2020-09-23 00:00:00 Outpatient STLMLC STLMLC [id number] [facility] 2020-09-22 00:00:00 2020-09-22 00:00:00 Outpatient STLMLC STLMLC [id number] [facility] 2020-09-21 00:00:00 2020-09-21 00:00:00 Outpatient STLMLC STLMLC [id number] [facility] 2020-09-01 00:00:00 2020-09-01 00:00:00 Outpatient STLMLC STLMLC [id number] [facility] 2020-08-26 00:00:00 2020-08-26 00:00:00 Outpatient STLMLC STLMLC [id number] [facility] 2020-07-22 00:00:00 2020-07-22 00:00:00 Outpatient STLMLC STLMLC [id number] [facility] 2020-05-25 15:00:00 2020-05-25 15:00:00 [facility] [place] [facility] [place] [id number] [facility] 2020-02-26 15:43:00 2020-02-26 15:43:[address] [facility] [id number] [facility] 2020-02-26 15:00:00 2020-02-26 15:00:00 [facility] [id number] [facility] 2020-02-16 09:39:00 2020-02-16 09:39:[address] [facility] [id number] [facility] 2020-02-11 14:50:00 2020-02-11 14:50:[address] [facility] [id number] [facility] 2020-02-11 14:00:00 2020-02-11 14:00:[address] [facility] [id number] [facility] 2020-02-11 11:17:00 2020-02-11 11:17:[address] [facility] [id number] [facility] 2019-12-01 08:22:00 2019-12-01 08:22:00 [facility] [facility] [id number] [facility] 2019-11-27 08:00:00 2019-11-27 08:00:00 [facility] [id number] [facility] 2019-10-03 10:20:00 2019-10-03 10:20:00 [facility] [id number] [facility] 2019-08-27 15:50:00 2019-08-27 15:50:00 [facility] [facility] [id number] [facility] 2019-08-22 15:00:00 2019-08-22 15:00:00 [facility] [id number] [facility] 2019-08-11 15:18:00 2019-08-11 15:18:00 [facility] [facility] [id number] [facility] 2019-08-04 16:31:00 2019-08-04 16:31:00 [facility] [facility] [id number] [facility] 2019-07-28 09:55:00 2019-07-28 09:55:00 [facility] [id number] [facility] 2019-05-01 15:20:00 2019-05-01 15:20:[address] [facility] [id number] [facility] 2018-10-29 13:56:00 2018-10-29 13:56:00 [facility] [facility] [id number] [facility] 2018-09-26 14:45:00 2018-09-26 14:45:00 [facility] [facility] [id number] [facility] 2018-07-03 15:15:00 2018-07-03 15:15:00 [facility] [facility] [id number] [facility] 2018-02-21 14:37:00 2018-02-21 14:37:00 [facility] [id number] [facility] 2018-02-01 08:30:00 2018-02-01 08:30:00 [address] [facility] [id number] [facility] Results Test Description Test Time Test Comments Results Result Co mments Source Lipase, [id number] 00:00:00* Test Item Value Reference Range Interpretation Comme nts Lipase (test code = 3040-3) 54 14-72 Comp. Metabolic Panel (14) (CMP)2021-12-05 00:00:00* Test Item Value Reference Range Interpretation Comme nts Glucose (test code = 2345-7) 92 65-99 BUN (test code = 3094-0) 16 6-24 Creatinine (test code = 2160-0) 0.90 0.57-1.00 eGFR If NonAfricn Am (test c ode = 81685-5) 78 >59 eGFR If Africn Am (test code = 74830-5) 90 >59 BUN/Creatinine Ratio (test c ode = 3097-3) 18 9-23 Sodium (test code = 2951-2) 139 134-144 Potassium (test code = 2823-3) 4.7 3.5-5.2 Chloride (test code = 2075-0) 102 96-106 Carbon Dioxide, Total (test code = 2027-9) 23 20-29 Calcium (test code = 61590-8) 9.4 8.7-10.2 Protein, Total (test code = 2885-2) 7.4 6.0-8.5 Albumin (test code = 1751-7) 4.7 3.8-4.8 Globulin, Total (test code = 65153-6) 2.7 1.5-4.5 A/G Ratio (test code = 1759-0) 1.7 1.2-2.2 Bilirubin, Total (test code = 1974-2) 0.2 0.0-1.2 Alkaline Phosphatase (test c ode = 6768-6) 77 44-121 AST (SGOT) (test code = 1920-8) 24 0-40 ALT (SGPT) (test code = 1742-6) 18 0-32 CBC With Differential/[id number] 00:00:00* Test Item Value Reference Range Interpretation Comme nts WBC (test code = 6690-2) 5.9 3.4-10.8 RBC (test code = 789-8) 4.84 3.77-5.28 Hemoglobin (test code = 718-7) 12.2 11.1-15.9 Hematocrit (test code = 4544-3) 39.6 34.0-46.6 MCV (test code = 787-2) 82 79-97 MCH (test code = 785-6) 25.2 26.6-33.0 MCHC (test code = 786-4) 30.8 31.5-35.7 RDW (test code = 788-0) 13.2 11.7-15.4 Platelets (test code = 777-3) 254 150-450 Neutrophils (test code = 770-8) 49 Not Estab. Lymphs (test code = 736-9) 36 Not Estab. Monocytes (test code = 5905-5) 8 Not Estab. Eos (test code = 713-8) 6 Not Estab. Basos (test code = 706-2) 1 Not Estab. Immature Cells (test code = UNLOINC) Neutrophils (Absolute) (test code = 751-8) 2.8 1.4-7.0 Lymphs (Absolute) (test code = 731-0) 2.1 0.7-3.1 Monocytes(Absolute) (test code = 742-7) 0.5 0.1-0.9 Eos (Absolute) (test code = 711-2) 0.4 0.0-0.4 Baso (Absolute) (test code = 704-7) 0.1 0.0-0.2 Immature Granulocytes (test code = 20633-8) 0 Not Estab. Immature Grans (Abs) (test c ode = 58866-2) 0.0 0.0-0.1 NRBC (test code = 93475-6) Hematology Comments: (test c ode = 50436-0)
[2024-04-06] MEDS ORDERED: IBUPROFEN 400 MG TAB ONE (17:07)
--- NOTE | 2024-04-06 17:44 | RAD REPORT ---
EXAM DESCRIPTION: RAD - Ankle Left 3 View - 04/06/2024 5:39 pm CLINICAL HISTORY: PAIN COMPARISON: No comparisons FINDINGS: Moderate soft tissue swelling is seen adjacent to the lateral malleolus. Large plantar and small posterior calcaneal spur. No acute fracture or dislocation.
--- NOTE | 2024-04-06 17:56 | EDPHYS ---
Physician Documentation [facility] Name: Danya Khanna Age: 48 yrs Sex: Female : 1975 Arrival Date: 04/06/2024 Time: 16:31 Bed DX4 Private MD: ED Physician Kaleb Padilla HPI: 04/06 17:53 This 48 yrs old Female presents to ER via Ambulatory with complaints of Ankle Injury. kb 17:53 Pt is a 48 year old female who presents for left ankle pain and swelling after twisting kb it yesterday. Denies any other injuries. Ambulates with steady gait. 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 - Infectious Disease History:: Denies. - Social history:: Smoking status: Patient denies any tobacco usage or history of. Patient uses alcohol, weekly. ROS: 17:52 Constitutional: As per HPI kb Exam: 17:52 Constitutional: This is a well developed, well nourished patient who is awake, alert, kb and in no acute distress. Head/Face: Normocephalic, atraumatic. ENT: Moist Mucous membranes Cardiovascular: Regular rate Respiratory: Respirations even and unlabored. No increased work of breathing. Talking in full sentences Abdomen/GI: Soft, non-tender. No distention Skin: Warm, dry with normal turgor. Normal color. Neuro: Awake and alert, GCS 15, oriented to person, place, time, and situation. Moves all extremities. Normal gait. 17:52 Musculoskeletal/extremity: Extremities: grossly normal except: noted in the left lateral malleolus: pain, swelling, tenderness, ROM: intact in all extremities, Circulation is intact in all extremities. Sensation intact. Weight bearing: able to fully bear weight, Vital Signs: 17:15 BP 115 / 66; Pulse 80; Resp 16; Temp 97.6; Pulse Ox 98% on R/A; zm MDM: 16:56 Patient medically screened. ec2 17:53 Differential diagnosis: fracture, sprain. Data reviewed: vital signs, nurses notes. kb Counseling: I had a detailed discussion with the patient and/or guardian regarding the historical points, exam findings, and any diagnostic results supporting the discharge/admit diagnosis, radiology results, the need for outpatient follow up, a orthopedic surgeon, to return to the emergency department if symptoms worsen or persist or if there are any questions or concerns that arise at home. 04/06 17:03 Order name: Ankle Left 3 View XRAY; Complete Time: 17:52 kb 04/06 17:03 Order name: Ice pack; Complete Time: 17:08 kb 04/06 17:52 Order name: Aircast Ankle Splint; Complete Time: 18:05 kb Administered Medications: 17:08 Drug: Ibuprofen PO 800 mg PO once Route: PO; bp 18:11 Follow up: Response: No adverse reaction bp Disposition Summary: 04/06/24 17:55 Discharge Ordered Condition: Stable kb Diagnosis - Sprain of ankle kb Followup: kb - With: Emergency Department - When: As needed - Reason: Worsening of condition Followup: kb - With: Private Physician - When: 2 - 3 days - Reason: Recheck today's complaints, Continuance of care, Re-evaluation by your physician Discharge Instructions: - Discharge Summary Sheet kb - Ankle Sprain, [id number] kb Forms: - Work release form kb - Medication Reconciliation Form kb - Antibiotic Education kb - Prescription Opioid Use kb - Patient Portal Instructions kb - Leadership Thank You Letter kb Prescriptions: - Ibuprofen 800 mg Oral Tablet - take 1 tablet ORAL route every 8 hours As needed take with food; 30 tablet; kb Refills: 0, Product Selection Permitted Addendum: 04/08/2024 14:18 I was immediately available for consultation during this patient's visit. I did not e c2 personally see the patient or discuss the patient with the GARRETT. . Signatures: Dispatcher [employer] Eliz Disla, STEPHANIE ZAMARRIPA-Michael Ghotra, RN RN bp Giselle Null RN RN kb3 Kaleb Padilla MD MD ec2 Corrections: (The following items were deleted from the chart) 04/06 18:11 17:59 Crutches ordered. kb bp
--- NOTE | 2024-04-06 17:56 | ER ---
Nurse's Notes [facility] [place] [place] Name: Danya Khanna Age: 48 yrs Sex: Female : 1975 Arrival Date: 04/06/2024 Time: 16:31 Bed DX4 Private MD: Diagnosis: Sprain of ankle Presentation: 04/06 16:45 Chief complaint: Patient states: She tripped over a rug at [employer] yesterday. kb3 16:45 Coronavirus screen: Vaccine status: Patient reports receiving the 2nd dose of the covid kb3 vaccine. Client denies travel out of the [place] in the last 14 days. Ebola Screen: Patient negative for fever greater than or equal to 101.5 degrees Fahrenheit, and additional compatible Ebola Virus Disease symptoms Patient denies exposure to infectious person. Patient denies travel to an Ebola-affected area in the 21 days before illness onset. Initial Sepsis Screen: Does the patient meet any 2 criteria? No. Patient's initial sepsis screen is negative. Does the patient have a suspected source of infection? No. Patient's initial sepsis screen is negative. Risk Assessment: Do you want to hurt yourself or someone else? Patient reports no desire to harm self or others. Onset of symptoms was April 05, 2024 at 17:00. 16:45 Method Of Arrival: Ambulatory 3 16:45 Acuity: HIWOT 4 kb3 Triage Assessment: 17:09 General: Appears in no apparent distress. Behavior is calm, cooperative. Pain: kb3 Complains of pain in left lateral malleolus Pain does not radiate. Pain currently is 3 out of 10 on a pain scale. Quality of pain is described as aching, pressure. Musculoskeletal: Swelling present in left lateral malleolus. 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 - Infectious Disease History:: Denies. - Social history:: Smoking status: Patient denies any tobacco usage or history of. Patient uses alcohol, weekly. Screenin:11 [facility] ED Fall Risk Assessment (Adult) History of falling in the last 3 months, kb3 including since admission No falls in past 3 months (0 pts) Confusion or Disorientation No (0 pts) Intoxicated or Sedated No (0 pts) Impaired Gait No (0 pts) Mobility Assist Device Used No (0 pt) Altered Elimination No (0 pt) Score/Fall Risk Level 0 - 2 = Low Risk Oriented to surroundings. Abuse screen: Denies threats or abuse. Denies injuries from another. Nutritional screening: No deficits noted. Tuberculosis screening: No symptoms or risk factors identified. Assessment: 17:11 General: See triage assessment. kb3 Vital Signs: 17:15 BP 115 / 66; Pulse 80; Resp 16; Temp 97.6; Pulse Ox 98% on R/A; zm ED Course: 16:35 Patient arrived in ED. mr 16:35 Kaleb Padilla MD is Attending Physician. ec2 16:59 [facility]iz Stein [facility]C [facility] kb 17:00 Kaleb Padilla MD is Attending Physician. kb 17:08 Michael Clarke, KATHLEEN is Primary Nurse. bp 17:08 Triage completed. kb3 17:10 Arm band placed on right wrist. kb3 17:11 Patient has correct armband on for positive identification. Bed in low position. Call kb3 light in reach. Provided Education on: Plan of care. 17:11 No provider procedures requiring assistance completed. Patient did not have IV access kb3 during this emergency room visit. 17:41 Ankle Left 3 View XRAY In Process Unspecified. EDMS 18:04 Air stirrup applied to left ankle. aw1 18:05 socks given. aw1 Administered Medications: 17:08 Drug: Ibuprofen PO 800 mg PO once Route: PO; bp 18:11 Follow up: Response: No adverse reaction bp Medication: 17:11 VIS not applicable for this client. kb3 Outcome: 17:55 Discharge ordered by . kb 18:11 Discharged to home ambulatory, with family, bp 18:11 Condition: stable 18:11 Discharge instructions given to patient, Instructed on discharge instructions, follow up and referral plans. medication usage, Demonstrated understanding of instructions, follow-up care, medications, Prescriptions given X 1, 18:12 Patient left the ED. bp Signatures: Dispatcher [employer] EDEliz Rivers, ANGLE DOZER OPERATOR-C ANGLE DOZER OPERATOR-Radha Desai, [facility] Michael Corado, RN RN Micheline Prescott Kelly, RN RN kb3 Jose D, Mirella aw1 Kaleb Padilla MD MD ec2
[2024-04-06 18:40] VITALS: BP 115/66; TEMP 97.6; O2SAT 98
== END 2024-04-06 18:12 | disposition home or self-care (01) ==
LOC: ER 16:31
DX: S93.492A Sprain of other ligament of left ankle, initial encounter (principal)
CPT/HCPCS: 99283